=== PATIENT | male | born 1980 | race Caucasian/White ===

== ENCOUNTER 2024-11-02 14:06 | Outpatient (CLI) | payer OTHER, SELFPAY ==
--- NOTE | 2024-11-02 13:00 | DI.RAD_ITS ---
Exam(s) XR KNEE LT 3V AP,LAT,NELIA EXAM: XR KNEE LT 3V AP,LAT,NELIA CLINICAL HISTORY: LEFT KNEE PAIN. TECHNIQUE: 2D digital imaging was performed. Three views. COMPARISON: No exams were available for comparison FINDINGS: BONES: No acute fracture is present. No bony destructive lesion is seen. JOINTS: There is severe narrowing of the lateral patellofemoral joint. There is abnormal lateral patellar deviation lateral patellar tilt. There is smoothly marginated bony fragments adjacent to the medial border of the patella which could represent old fracture fragments. No joint effusion is seen. There is mild spurring at the medial femoral tibial joint. SOFT TISSUE: Normal. 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 Old fracture fragments at the medial border. DATA REPOSITORY: RADIATION DOSE DELIVERED:
== END 2024-11-02 14:07 | disposition home or self-care (01) ==
LOC: DIORS 14:06
PROVIDERS: PCP Physical Therapist; Visit Provider Student in an Organized Health Care Education/Training Program
DX: M25.562 Pain in left knee (principal)
CPT/HCPCS: 73562